=== PATIENT | male | born 1955 | race Hispanic/Latino ===

== ENCOUNTER 2024-06-05 07:04 | Day surgery (SDC) | payer OTHER ==
[~2024-06-05] VITALS: Ht 172.7 cm; Wt 98.4 kg
[2024-06-05] VITALS (11 sets, daily range): BP systolic 112–157; BP diastolic 69–83; PULSE 60–68; RESP 14–16; TEMP 97.1–97.6
[2024-06-05] MEDS: 0.9%NACL 1000ML 1,000 ML IV ONE (09:03)
[2024-06-05] MEDS ORDERED: proPOFol 10 MG/ML 20ML VIAL IV ONE (09:58)
--- NOTE | 2024-06-05 11:09 | NUR ---
Full and complete discharge instructions given to Patient and Family both verbally and in writing. Explained GI procedure precautions and follow up. All questions answered. PIV removed with catheter tip intact. Home with Family W/C to POV.
== END 2024-06-05 11:14 | disposition home or self-care (01) ==
LOC: ENDO 07:04 → DAH 07:04 → ENDO 11:14
PROVIDERS: ATTEND Internal Medicine
DX: K92.1 Melena (principal); K57.30 Diverticulosis of large intestine without perforation or abscess without bleeding; K64.4 Residual hemorrhoidal skin tags; K64.1 Second degree hemorrhoids; I10 Essential (primary) hypertension; E78.00 Pure hypercholesterolemia, unspecified; F32.A Depression, unspecified; M19.90 Unspecified osteoarthritis, unspecified site; E13.9 Other specified diabetes mellitus without complications; Z79.84 Long term (current) use of oral hypoglycemic drugs; Z79.899 Other long term (current) drug therapy
CPT/HCPCS: 45380; 82948 ×2; J7030; J2704; A4215; A4223; A4222; A4221; A4663; A4606; J3490